=== PATIENT | female | born 1965 | race African-American/Black ===

== ENCOUNTER 2025-07-10 20:09 | Emergency (ER) | payer BC ==
[~2025-07-10] VITALS: Ht 160 cm; Wt 77.6 kg
[2025-07-10] MEDS: KETOROLAC TROMETHAMINE 60 MG/2 ML VIAL IM ONE (21:09)
[2025-07-10 21:17] VITALS: PULSE 73; RESP 18; TEMP 97
[2025-07-10] MEDS ORDERED: MELOXICAM7.5 MG PO (21:37)
[2025-07-10] MEDS ORDERED: ULTRAM 50MG50 MG PO (21:39)
[2025-07-10 21:55] VITALS: BP 145/89; PULSE 75; RESP 18; TEMP 97; O2SAT 100
== END 2025-07-10 21:55 | disposition home or self-care (01) ==
LOC: FSED 20:21
DX: M25.562 Pain in left knee (principal); Y93.73 Activity, racquet and hand sports; I10 Essential (primary) hypertension
CPT/HCPCS: 80048; 85025; 85379; 96372; 99283; J1885

== ENCOUNTER 2025-07-20 15:45 | Emergency (ER) | payer BC ==
[~2025-07-20] VITALS: Ht 160 cm; Wt 77.6 kg
[~2025-07-20 15:45] MED LIST: MELOXICAM7.5 MG PO; ULTRAM 50MG50 MG PO
[2025-07-20 16:05] VITALS: TEMP 98.1
[2025-07-20] MEDS: KETOROLAC TROMETHAMINE 60 MG/2 ML VIAL IM ONE (17:03)
[2025-07-20 17:35] VITALS: PULSE 70; RESP 16; O2SAT 98
== END 2025-07-20 17:40 | disposition home or self-care (01) ==
LOC: ER 16:11
DX: M25.562 Pain in left knee (principal); S83.8X2A Sprain of other specified parts of left knee, initial encounter; M25.462 Effusion, left knee; Y93.73 Activity, racquet and hand sports; Y92.89 Other specified places as the place of occurrence of the external cause
CPT/HCPCS: 73562; 99283; J1885